=== PATIENT | female | born 1950 | race Caucasian/White ===

== ENCOUNTER 2021-10-29 20:28 | Emergency (ER) | payer MEDICARE, OTHER, SELFPAY ==
[2021-10-29] VITALS (8 sets, daily range): BP systolic 155–208; BP diastolic 75–101; PULSE 54–64; RESP 18–38; TEMP 37.2; O2SAT 95–99; BMI 23.3
--- NOTE | 2021-10-29 20:40 | DI.RAD.S_ITS ---
PROCEDURE: XR CHEST 1V INDICATIONS: chest pain TECHNIQUE: One view of the chest was acquired. COMPARISON: , , CHEST 2 VIEW, 05/20/2007, 13:53. FINDINGS: Surgical changes and devices: None. Lungs and pleura: Lungs are clear. No pleural effusions or pneumothorax. Mediastinum: Mediastinal contours appear normal. Heart size is normal. Bones and chest wall: No suspicious bony lesions. Overlying soft tissues appear unremarkable. IMPRESSION: 1. No acute cardiopulmonary disease. Dictated by: Phoenix Patel M.D. on 10/29/2021 at 21:49 Approved by: Phoenix Patel M.D. on 10/29/2021 at 21:49
[2021-10-29 21:04] LABS: Alanine Aminotransferase 22 IU/L (<35); Albumin 4.6 g/dL (3.5-5.0); Albumin Globulin Ratio 1.6 (1.0-2.8); Alkaline Phosphatase 88 U/L (38-126); Aspartate Aminotransferase 24 IU/L (14-36); BUN Creatinine Ratio 33.8 (6-22); Bilirubin Total 0.6 mg/dL (0.2-1.3); Blood Urea Nitrogen 22 mg/dL (7-17); Calcium 9.7 mg/dL (8.4-10.2); Carbon Dioxide 28 mmol/L (22-32); Chloride 105 mmol/L (98-107); Creatine Kinase 113 U/L (30-135); Estimated Glomerular Filt Rate > 60 mL/min (>60); Globulin 2.8 g/dL (1.7-4.1); Glucose 116 mg/dL (80-110); Lipase 170 U/L (23-300); Magnesium 2.1 mg/dL (1.6-2.3); Potassium 3.4 mmol/L (3.4-5.1); Sodium 141 mmol/L (137-145); Total Protein 7.4 g/dL (6.3-8.2)
--- NOTE | 2021-10-29 21:07 | ED_ITS ---
HPI - Chest Pain General Chief Complaint: Chest Pain Stated Complaint: Nausea chest pain Time Seen by Provider: 10/29/21 20:53 Source: patient Mode of arrival: Ambulatory Limitations: no limitations Limitations: no limitations History of Present Illness HPI narrative: The patient presents with epigastric pain and chest pain. Symptoms started about 1 hour prior to arrival. She has just been 5 days as [facility] in [place] with her elderly mother. She is on a statin, Celebrex, and Prozac. She left those medications at home. after leaving the hospital she had a sandwich. When physicians sounds she developed epigastric pain. Pain increased in strength while driving here. She had no nausea vomiting. She did develop central sternal chest pain, the pain did not radiate. She has no palpitations, no diaphoresis. She has no chronic health issues. She has no diabetes or hypertension. She is nonsmoker. She has no history of PUD, or GERD. Related Data Home Medications Medication Instructions Recorded Confirmed CHOLECALCIFEROL (VITAMIN D3) 0 PO * DOSE/FREQUENCY ##0 01/10/08 (Vitamin D3) Cyanocobalamin (Vitamin B-12) 100 mcg PO ##0 01/10/08 [FISH OIL] ##0 01/10/08 [TYLENOL ARTHRITIS] ##0 01/10/08 atorvastatin 10 mg tablet 10 mg PO DAILY 09/19/21 09/19/21 celecoxib 100 mg capsule (Celebrex) 200 mg PO DAILY 09/19/21 09/19/21 fluoxetine 10 mg capsule (Prozac) 10 mg PO DAILY 09/19/21 09/19/21 fluticasone furoate 100 1 inh inhalation DAILY 09/19/21 09/19/21 mcg-vilanterol 25 mcg/dose inhalation powder (Breo Ellipta) Allergies Allergy/AdvReac Type Severity Reaction Status Date / Time penicillin G [PENICILLIN G] Allergy Unknown Unverified 05/21/17 11:46 Review of Systems Review of Systems ROS Unobtainable: All systems reviewed & are unremarkable except as noted in HPI and below Constitutional Constitutional: Denies chills, Denies fatigue, Denies fever(s) and Denies headache(s) ENT Ears, Nose, Mouth, and Throat: Denies vertigo, Denies dizziness, Denies headache(s), Denies sinus pain, Denies sinus pressure and Denies sore throat Cardiovascular Cardiovascular: Reports chest pain, Denies pedal edema, Denies palpitations, Denies dyspnea and Denies paroxysmal nocturnal dyspnea Respiratory Respiratory: Denies chest congestion, Denies cough and Denies dyspnea Gastrointestinal Gastrointestinal: Reports abdominal pain and Denies change in stool character Genitourinary Genitourinary: Denies dysuria Musculoskeletal Musculoskeletal: Denies back pain Integumentary/Breasts Skin/Breast: Denies rash Neurologic Neurologic: Denies vertigo, Denies dizziness and Denies headache(s) Psychiatric Psychiatric: Reports anxiety Endocrine Endocrine: Denies fatigue and Denies palpitations Patient History Medical History (Updated 10/30/21 @ 05:14 by Gregory Shaw MD) Anxiety Arthritis GERD (gastroesophageal reflux disease) Social History Smoking Status: Never smoker Smoking Status: Never smoker alcohol intake frequency: 0-2 drinks per day Substance Use Type: does not use Exam Initial Vital Signs Initial Vital Signs: Vital Signs Pulse Rate 60 10/29/21 20:32 Respiratory Rate 38 H 10/29/21 20:32 Const General: cooperative, healthy appearing, comfortable and anxious Nutritional Appearance: average body habitus HENMT Head: normocephalic and atraumatic Face and sinus: normal facial exam Throat: posterior oropharynx normal Eyes General: Yes appearance normal, both eyes and all related structures Neck Neck: normal visual inspection Chest Chest: normal inspection of the chest Resp Auscultation: clear to auscultation bilaterally Cardio Rate: regular rate Rhythm: regular rhythm Heart Sounds: S1 normal, S2 normal and no murmurs GI Palpation: No guarding, No hepatomegaly and tender (Epigastric) Auscultation: normal bowel sounds General: No CVA tenderness Back/Spine/Pelvis Back: No back tenderness Skin General: no rashes or lesions noted Neuro General: patient alert, patient awake, patient oriented x3 and no focal motor deficits Extrem General: normal to inspection, no pedal edema and no calf tenderness Course Course Course Narrative: Symptoms resolved with Protonix and GI cocktail. There is no evidence of cardiopulmonary disease. Orders Ordered: ED Orders 10/29/21 20:40 XR chest 1V Stat Complete Blood Count AUTO DIFF Stat Comprehensive Metabolic Panel Stat Lipase Stat Magnesium Stat Troponin & CK Cardiac Panel Stat 10/29/21 20:43 EKG-12 Lead Stat Discontinued Medications Al Hydrox/Mg Hydrox/Simethicone 20 ml/ Lidocaine HCl 15 ml 0 ml PO NOW ONE Stop: 10/29/21 21:10 Last Admin: 10/29/21 21:19 Dose: 35 ml Documented By: RL Pantoprazole Sodium (Pantoprazole 40 Mg Vial) 40 mg IV NOW ONE Stop: 10/29/21 21:10 Last Admin: 10/29/21 21:19 Dose: 40 mg Documented By: RL Vital Signs Vital signs: Vital Signs - 8 hr 10/29/21 21:30 10/29/21 22:00 10/29/21 22:35 Pulse Rate 60 64 Respiratory Rate 18 30 H Blood Pressure 155/75 H Pulse Oximetry 96 95 Oxygen Delivery Method Room Air MDM - Chest Pain Lab Data Result diagrams: 10/29/21 20:40 10/29/21 20:40 Labs: Lab Results 10/29/21 10/29/21 Range/Units 20:40 20:40 WBC 5.6 (4.5-11.0) X10^3/uL RBC 4.36 (4.0-5.2) X10^6/uL Hgb 13.9 (12.0-16.0) g/dL Hct 40.2 (36-46) % MCV 92.1 (80-100) fL MCH 32.0 (26-34) PG MCHC 34.7 (30-36) % RDW 14.1 (11.6-14.8) % Plt Count 269 (150-400) X10^3/uL Neut % (Auto) 55.2 (50-75) % Lymph % (Auto) 33.8 (25-40) % Lincoln % (Auto) 8.6 (3-14) % Eos % (Auto) 1.4 L (2-4) % Baso % (Auto) 1.0 (0-2) % Neut # (Auto) 3100 (5389-5093) /uL Lymph # (Auto) 1900 (0756-0113) /uL Lincoln # (Auto) 500 (0-900) /uL Eos # (Auto) 100 (0-450) /uL Baso # (Auto) 100 (0-100) /uL Sodium 141 (137-145) mmol/L Potassium 3.4 (3.4-5.1) mmol/L Chloride 105 (98-107) mmol/L Carbon Dioxide 28 (22-32) mmol/L BUN 22 H (7-17) mg/dL Creatinine 0.65 (0.52-1.04) mg/dL Estimated GFR > 60 (>60) mL/min BUN/Creatinine Ratio 33.8 H (6-22) Glucose 116 H (80-110) mg/dL Calcium 9.7 (8.4-10.2) mg/dL Magnesium 2.1 (1.6-2.3) mg/dL Total Bilirubin 0.6 (0.2-1.3) mg/dL AST 24 (14-36) IU/L ALT 22 (<35) IU/L Alkaline Phosphatase 88 (38-126) U/L Total Creatine Kinase 113 (30-135) U/L CK-MB (CK-2) 3.32 H (<2.37) ng/mL CK-MB (CK-2) Rel Index 2.9 (1.5-5.0) % Troponin I < 0.012 (0.01-0.034) ng/mL Total Protein 7.4 (6.3-8.2) g/dL Albumin 4.6 (3.5-5.0) g/dL Globulin 2.8 (1.7-4.1) g/dL Albumin/Globulin Ratio 1.6 (1.0-2.8) Lipase 170 (23-300) U/L Imaging Data Chest x-ray: Radiologist's Impression: no acute cardiopulmonary disease. ECG Data Attestation: I personally reviewed and interpreted this ECG as follows: ( Normal sinus rhythm rate 66 beats per minute. Normal intervals. No ectopy. No acute ST T wave changes.) Discharge Plan Departure Patient Disposition: Home Clinical Impression: Abdominal pain, acute, epigastric Instructions: DI for Abdominal Pain-Adult Activity Restrictions/Additional Instructions: your pain is likely from the stomach. Your heart and lungs are functioning normally. The discomfort was somehow related to that last meal had. I would recommend a bland, low-fat diet until your Symptoms have resolved. If you have ongoing symptoms, omeprazole is available [id number]. Take 20 mg daily. Plan follow-up with your doctor. Return here as necessary. Prescriptions: No Action CHOLECALCIFEROL (VITAMIN D3) (Vitamin D3) 0 PO * DOSE/FREQUENCY Qty: 0 [FISH OIL] Qty: 0 Cyanocobalamin (Vitamin B-12) 100 mcg PO Qty: 0 [TYLENOL ARTHRITIS] Qty: 0 celecoxib [Celebrex] 100 mg capsule 200 mg PO DAILY fluoxetine [Prozac] 10 mg capsule 10 mg PO DAILY fluticasone furoate-vilanterol [Breo Ellipta] 100-25 mcg/dose blister with device 1 inh inhalation DAILY atorvastatin 10 mg tablet 10 mg PO DAILY Referrals: Beba Melendez PA-C [Primary Care Provider] - Visit Report Forms: Patient Portal/API
[2021-10-29 21:11] LABS: Add Manual Diff / Slide Review NO; Basophils Absolute Auto 100 /uL (0-100); Eosinophils Absolute Auto 100 /uL (0-450); Eosinophils Percent Auto 1.4 % (2-4); Hematocrit 40.2 % (36-46); Hemoglobin 13.9 g/dL (12.0-16.0); Lymphocytes Absolute Auto 1900 /uL (1100-4500); Lymphocytes Percent Auto 33.8 % (25-40); Mean Corpuscular HGB Conc 34.7 % (30-36); Mean Corpuscular Volume 92.1 fL (80-100); Monocytes Absolute Auto 500 /uL (0-900); Monocytes Percent Auto 8.6 % (3-14); Neutrophils Absolute Auto 3100 /uL (1500-7000); Neutrophils Percent Auto 55.2 % (50-75); Platelet Count 269 X10^3/uL (150-400); Red Blood Cell Count 4.36 X10^6/uL (4.0-5.2); Red Cell Distribution Width 14.1 % (11.6-14.8); White Blood Cell Count 5.6 X10^3/uL (4.5-11.0)
[2021-10-29 21:15] LABS: Troponin I < 0.012 ng/mL (0.01-0.034)
[2021-10-29 21:18] LABS: CKMB % Relative Index 2.9 % (1.5-5.0); Creatine Kinase MB 3.32 ng/mL (<2.37); HEMOLYSIS 39 (0-50)
[2021-10-29] MEDS: PANTOPRAZOLE 40 MG VIAL IV (21:19)
[2021-10-29] MEDS: MAG HYDROX/ALUMINUM/SIMETH SUS 20 ML, LIDOCAINE VISCOUS 2% 15 ML PO (21:19)
== END 2021-10-29 22:40 | disposition home or self-care (01) ==
PROVIDERS: Emergency Provider Emergency Medicine; PCP Physician Assistant Medical; Referring Provider Specialist
DX: R10.13 Epigastric pain (principal); R07.9 Chest pain, unspecified
CPT/HCPCS: 36415; 71045; 80053; 82550; 82553; 83690; 83735; 84484; 85025; 93005; 93010; 96374; 99284; C9113

== ENCOUNTER → 2022-01-08 14:42 | Outpatient (CLI) | payer MEDICARE, SELFPAY ==
[2022-01-08 19:27] LABS: Add Manual Diff / Slide Review NO; Basophils Absolute Auto 0 /uL (0-100); Eosinophils Absolute Auto 100 /uL (0-450); Eosinophils Percent Auto 1.9 % (2-4); Hematocrit 38.1 % (36-46); Lymphocytes Absolute Auto 1300 /uL (1100-4500); Lymphocytes Percent Auto 27.4 % (25-40); Mean Corpuscular Hemoglobin 31.5 PG (26-34); Mean Corpuscular Volume 92.5 fL (80-100); Monocytes Absolute Auto 500 /uL (0-900); Monocytes Percent Auto 9.8 % (3-14); Neutrophils Absolute Auto 2800 /uL (1500-7000); Neutrophils Percent Auto 59.9 % (50-75); Platelet Count 285 X10^3/uL (150-400); Red Blood Cell Count 4.12 X10^6/uL (4.0-5.2); Red Cell Distribution Width 14.2 % (11.6-14.8); White Blood Cell Count 4.7 X10^3/uL (4.5-11.0)
[2022-01-08 19:44] LABS: Alanine Aminotransferase 23 IU/L (<35); Albumin 4.2 g/dL (3.5-5.0); Albumin Globulin Ratio 1.6 (1.0-2.8); Alkaline Phosphatase 122 U/L (38-126); Aspartate Aminotransferase 24 IU/L (14-36); Bilirubin Total 0.5 mg/dL (0.2-1.3); Blood Urea Nitrogen 15 mg/dL (7-17); C-Reactive Protein Quant 1.1 mg/dL (<1.0); Calcium 9.4 mg/dL (8.4-10.2); Carbon Dioxide 31 mmol/L (22-32); Chloride 101 mmol/L (98-107); Estimated Glomerular Filt Rate > 60 mL/min (>60); Globulin 2.6 g/dL (1.7-4.1); Glucose 87 mg/dL (80-110); HEMOLYSIS < 15 (0-50); Potassium 4.2 mmol/L (3.4-5.1); Sodium 140 mmol/L (137-145); Total Protein 6.8 g/dL (6.3-8.2)
[2022-01-08 20:38] LABS: Erythrocyte Sedimentation Rate 16 MM/HR (0-20)
== END ==
PROVIDERS: PCP Physician Assistant Medical; Visit Provider Internal Medicine Rheumatology
DX: M47.819 Spondylosis without myelopathy or radiculopathy, site unspecified (principal); Z79.899 Other long term (current) drug therapy
CPT/HCPCS: 80053; 84550; 85025; 85651; 86140

== ENCOUNTER → 2022-11-26 14:15 | Outpatient (CLI) | payer MEDICARE, OTHER, SELFPAY ==
[2022-11-26 19:04] LABS: Add Manual Diff / Slide Review NO; Basophils Absolute Auto 0 /uL (0-100); Basophils Percent Auto 0.8 % (0-2); Eosinophils Absolute Auto 100 /uL (0-450); Eosinophils Percent Auto 2.9 % (2-4); Hematocrit 35.7 % (36-46); Hemoglobin 12.1 g/dL (12.0-16.0); Lymphocytes Absolute Auto 1200 /uL (1100-4500); Lymphocytes Percent Auto 25.5 % (25-40); Mean Corpuscular Hemoglobin 32.9 PG (26-34); Mean Corpuscular Volume 96.8 fL (80-100); Monocytes Absolute Auto 300 /uL (0-900); Monocytes Percent Auto 6.1 % (3-14); Neutrophils Absolute Auto 3000 /uL (1500-7000); Neutrophils Percent Auto 64.7 % (50-75); Platelet Count 279 X10^3/uL (150-400); Red Blood Cell Count 3.69 X10^6/uL (4.0-5.2); Red Cell Distribution Width 13.8 % (11.6-14.8); White Blood Cell Count 4.6 X10^3/uL (4.5-11.0)
[2022-11-26 19:05] LABS: Alanine Aminotransferase 46 IU/L (<35); Albumin Globulin Ratio 1.8 (1.0-2.8); Alkaline Phosphatase 74 U/L (38-126); Aspartate Aminotransferase 38 IU/L (14-36); BUN Creatinine Ratio 26.2 (6-22); Blood Urea Nitrogen 16 mg/dL (7-17); Calcium 9.6 mg/dL (8.4-10.2); Carbon Dioxide 31 mmol/L (22-32); Chloride 102 mmol/L (98-107); Estimated Glomerular Filt Rate > 60 mL/min (>60); Globulin 2.2 g/dL (1.7-4.1); Glucose 93 mg/dL (80-110); HEMOLYSIS < 15 (0-50); Potassium 4.1 mmol/L (3.4-5.1); Sodium 138 mmol/L (137-145); Total Protein 6.2 g/dL (6.3-8.2)
[2022-11-26 19:09] LABS: High Sensitivity CRP - Cardiac 1.2 mg/L (1.0-3.0)
[2022-11-26 19:21] LABS: Bilirubin Total 0.3 mg/dL (0.2-1.3)
[2022-11-26 20:50] LABS: Erythrocyte Sedimentation Rate 3 MM/HR (0-20)
== END ==
PROVIDERS: PCP Physician Assistant Medical; Visit Provider Internal Medicine Rheumatology
DX: Z79.899 Other long term (current) drug therapy (principal); M47.819 Spondylosis without myelopathy or radiculopathy, site unspecified
CPT/HCPCS: 80053; 85025; 85651; 86140

== ENCOUNTER → 2023-01-30 10:42 | Outpatient (CLI) | payer MEDICARE, OTHER, SELFPAY ==
--- NOTE | 2023-01-30 10:30 | DI.MRI.S_ITS ---
PROCEDURE: MR LUMBAR SPINE WO CON INDICATIONS: Lumbar radiculopathy TECHNIQUE: Noncontrast sagittal T1 spin echo and T2 fast echo, sagittal STIR, and T2 fast spin echo through the lumbar spine. In cases with scoliosis, additional coronal T2 fast spin echo may be performed. COMPARISON: None. FINDINGS: Image quality: Excellent. Alignment and Curvature: There is normal bony alignment. Bone Marrow: Marrow is of normal overall signal. No acute vertebral body compression fractures. Remote compression fracture of L1 with 20 percent anterior height loss. Spinal Cord: Conus medullaris terminates at the L1 level. Visualized cord demonstrates normal signal and size. Paraspinous Soft Tissues: No paravertebral masses. T12-L1: There is bony fusion of the T12 and L1 vertebral bodies posteriorly will which bulges posteriorly at the disc level. The foramina and central canal are patent. L1-L2: Diffuse disc bulge with no significant foraminal or central canal stenosis. L2-L3: Right paracentral disc protrusion and right facet arthropathy causes severe right foraminal stenosis. The left foramen has mild stenosis. The central canal has severe stenosis. There is ligamentum flavum hypertrophy. L3-L4: Disc space narrowing. Diffuse disc bulge with disc osteophytes. Moderate bilateral foraminal stenosis. No facet hypertrophy. Mild to moderate central canal stenosis. L4-L5: Disc space narrowing. Diffuse disc bulge with disc osteophytes. Facet hypertrophy on the left causes severe left foraminal stenosis and moderate right foraminal stenosis. The central canal is patent. L5-S1: Diffuse disc bulge causes mild bilateral foraminal stenosis. No central canal stenosis. Facet hypertrophy and ligamentum flavum hypertrophy at this level cause moderate central canal stenosis. IMPRESSION: 1. Multilevel degenerative disc disease causing foraminal and central canal stenosis as detailed above. 2. L2-3 has a large right paracentral disc protrusion with severe right foraminal stenosis and severe central canal stenosis at this level. 3. Facet hypertrophy and ligamentum flavum hypertrophy at L5-S1 cause moderate central canal stenosis. 4. Mild to moderate central canal stenosis at L3-4. Dictated by: Jose J Chen M.D. on 01/30/2023 at 15:20 Approved by: Jose J Chen M.D. on 01/30/2023 at 15:32
== END ==
PROVIDERS: PCP Physician Assistant Medical; Referring Provider Anesthesiology; Visit Provider Anesthesiology
DX: M51.16 Intervertebral disc disorders with radiculopathy, lumbar region (principal); M48.061 Spinal stenosis, lumbar region without neurogenic claudication; M48.07 Spinal stenosis, lumbosacral region; M47.26 Other spondylosis with radiculopathy, lumbar region; M47.27 Other spondylosis with radiculopathy, lumbosacral region
CPT/HCPCS: 72148

== ENCOUNTER → 2023-03-24 14:04 | Outpatient (CLI) | payer MEDICARE, OTHER, SELFPAY ==
[2023-03-24 18:49] LABS: Alanine Aminotransferase 26 IU/L (<35); Albumin 4.6 g/dL (3.5-5.0); Albumin Globulin Ratio 1.7 (1.0-2.8); Alkaline Phosphatase 132 U/L (38-126); Aspartate Aminotransferase 30 IU/L (14-36); BUN Creatinine Ratio 23.6 (6-22); Bilirubin Total 0.9 mg/dL (0.2-1.3); Blood Urea Nitrogen 13 mg/dL (7-17); Calcium 9.7 mg/dL (8.4-10.2); Carbon Dioxide 28 mmol/L (22-32); Chloride 99 mmol/L (98-107); Cholesterol 232 mg/dL (140-199); Estimated Glomerular Filt Rate > 60 mL/min (>60); Globulin 2.7 g/dL (1.7-4.1); Glucose 97 mg/dL (80-110); HDL Cholesterol 72 mg/dL (40-60); HEMOLYSIS < 15 (0-50); LDL Cholesterol Calculated 141 mg/dL (<100); Potassium 3.9 mmol/L (3.4-5.1); Sodium 138 mmol/L (137-145); Total Protein 7.3 g/dL (6.3-8.2); Triglycerides 95 mg/dL (35-150)
== END ==
PROVIDERS: PCP Physician Assistant Medical; Visit Provider Specialist
DX: E78.2 Mixed hyperlipidemia (principal); Z51.81 Encounter for therapeutic drug level monitoring
CPT/HCPCS: 80053; 80061

== ENCOUNTER → 2023-06-13 11:09 | Outpatient (CLI) | payer MEDICARE, OTHER, SELFPAY ==
[2023-06-13 19:44] LABS: Cholesterol 172 mg/dL (140-199); HDL Cholesterol 57 mg/dL (40-60); LDL Cholesterol Calculated 100 mg/dL (<100); Triglycerides 76 mg/dL (35-150)
[2023-06-13 19:44] LABS: Add Manual Diff / Slide Review NO; Basophils Absolute Auto 0 /uL (0-100); Basophils Percent Auto 0.9 % (0-2); Eosinophils Absolute Auto 100 /uL (0-450); Eosinophils Percent Auto 3.1 % (2-4); Hematocrit 29.3 % (36-46); Hemoglobin 9.9 g/dL (12.0-16.0); Lymphocytes Absolute Auto 1000 /uL (1100-4500); Lymphocytes Percent Auto 27.1 % (25-40); Mean Corpuscular HGB Conc 33.7 % (30-36); Mean Corpuscular Volume 98.2 fL (80-100); Monocytes Absolute Auto 300 /uL (0-900); Monocytes Percent Auto 7.6 % (3-14); Neutrophils Absolute Auto 2200 /uL (1500-7000); Neutrophils Percent Auto 61.3 % (50-75); Platelet Count 312 X10^3/uL (150-400); Red Blood Cell Count 2.99 X10^6/uL (4.0-5.2); Red Cell Distribution Width 14.1 % (11.6-14.8); White Blood Cell Count 3.6 X10^3/uL (4.5-11.0)
[2023-06-13 20:22] LABS: Erythrocyte Sedimentation Rate 17 MM/HR (0-20)
[2023-06-13 21:19] LABS: Alanine Aminotransferase 25 IU/L (<35); Albumin 3.9 g/dL (3.5-5.0); Albumin Globulin Ratio 1.9 (1.0-2.8); Alkaline Phosphatase 96 U/L (38-126); Aspartate Aminotransferase 33 IU/L (14-36); BUN Creatinine Ratio 27.7 (6-22); Bilirubin Total 0.9 mg/dL (0.2-1.3); Blood Urea Nitrogen 13 mg/dL (7-17); C-Reactive Protein Quant 1.1 mg/dL (<1.0); Calcium 9.2 mg/dL (8.4-10.2); Carbon Dioxide 29 mmol/L (22-32); Chloride 107 mmol/L (98-107); Estimated Glomerular Filt Rate > 60 mL/min (>60); Globulin 2.1 g/dL (1.7-4.1); Glucose 95 mg/dL (80-110); HEMOLYSIS < 15 (0-50); Potassium 4.5 mmol/L (3.4-5.1); Sodium 139 mmol/L (137-145)
== END ==
PROVIDERS: PCP Physician Assistant Medical
DX: L40.59 Other psoriatic arthropathy (principal); E78.2 Mixed hyperlipidemia; Z79.899 Other long term (current) drug therapy
CPT/HCPCS: 80053; 80061; 85025; 85651; 86140

== ENCOUNTER → 2024-04-26 16:50 | Outpatient (CLI) | payer MEDICARE, OTHER, SELFPAY ==
[2024-04-27 19:39] LABS: Bilirubin Urine UA NEGATIVE (NEGATIVE); Color Urine UA YELLOW; Glucose Urine UA NEGATIVE (Negative); Ketones Urine UA TRACE (NEGATIVE); Leukocyte Esterase Urine UA NEGATIVE (NEGATIVE); Nitrite Urine UA NEGATIVE (Negative); Occult Blood Urine UA NEGATIVE (Negative); Protein Urine UA NEGATIVE (Negative); Specific Gravity Urine UA 1.025 (1.000-1.035); Urobilinogen Urine UA 0.2 E.U./dL (0.2)
[2024-04-27 19:41] LABS: Appearance Urine UA Turbid
[2024-04-27 19:47] LABS: RBC Urine None Seen (0-5/HPF); Squamous Epithelial Cell Urine 0-1 /HPF (0-5/HPF); Urine Volume 6; WBC Urine 0-1/HPF (0-5/HPF)
[2024-04-27 19:56] LABS: Bacteria Urine None Seen; Culture Indicated Urine Cult Not Indicated
[2024-04-27 19:57] LABS: Amorphous Sediment Urine 1+; Calcium Oxalate Crystals Urine Few
== END ==
PROVIDERS: PCP Family Medicine; Visit Provider Specialist
DX: R32 Unspecified urinary incontinence (principal); R35.0 Frequency of micturition; R35.1 Nocturia; N89.8 Other specified noninflammatory disorders of vagina
CPT/HCPCS: 81001

== ENCOUNTER → 2024-06-24 13:13 | Outpatient (CLI) | payer MEDICARE, OTHER, SELFPAY ==
--- NOTE | 2024-06-24 13:15 | DI.RAD.S_ITS ---
PROCEDURE: XR DEXA AXIAL SKELETON INDICATIONS: SCREENING FOR OSTEOPOROSIS COMPARISON: None. FINDINGS: Lumbar Spine: Bone mineral density 0.993 g/cm2, T score -0.8. Left Femoral Neck: Bone mineral density 0.618 g/cm2, T score -2.1. Left Hip: Bone mineral density 0.731 g/cm2, T score -1.7. Fracture Risk Calculation (when applicable): 10-year fracture risk of a major osteoporotic fracture 30 percent and of a hip fracture 19 percent. (T score greater or equal to -1.0 to: NORMAL) (T score from -1.1 to -2.4: OSTEOPENIA) (T score less than or equal to -2.5: OSTEOPOROSIS) IMPRESSION: Osteopenia--- recommend repeat DEXA in 2-3 years for reassessment. Follow-up guidelines as follows: Osteoporosis: Consider a repeat DEXA and Vertebral Fracture Assessment (VFA) exam in 2 years or sooner if medically necessary, to reassess this patient's status. Osteopenia: Consider a repeat DEXA in 2-3 years to reassess this patient's status, or if there is a new clinical indication. Normal: Consider a repeat DEXA in 5 years or sooner, or if there is a new clinical indication. All treatment decisions require clinical judgment and consideration of individual patient factors, including patient preferences, comorbidities, previous drug use, risk factors not captured in the FRAX model (e.g., frailty, falls, vitamin D deficiency, increased bone turnover, interval significant decline in bone density ) and possible under- or over-estimation of fracture risk by FRAX. In addition, the NOF Guide recommends that FDA-approved medical therapies be considered in postmenopausal women and men age >= 50 years with a: * Hip or vertebral (clinical or morphometric) fracture * T-score of <=-2.5 at the spine or hip * Ten-year fracture probability by FRAX of >= 3% for hip fracture or >=20% for major osteoporotic fracture. Dictated by: Damien Denson M.D. on 06/24/2024 at 18:46 Approved by: Damien Denson M.D. on 06/24/2024 at 18:48
--- NOTE | 2024-06-24 13:16 | DI.MG.S_ITS ---
MM screening mammo BI: 06/24/2024. BI-RADS: 0 CLINICAL: 73-year old female for bilateral screening mammogram. Tyrer-Cuzick lifetime risk of 4.7%. No personal or first-degree family history of breast cancer. Current reported family history of breast cancer: maternal uncle's daughter. PRIOR EXAMS Outside priors dated 05/14/2023, 05/07/2022, and 07/18/2015. MAMMOGRAPHY TECHNIQUE: 2D and 3D (tomosynthesis) digital mammographic views obtained, with additional images as needed for full coverage. Current study was also evaluated with a Computer Aided Detection (CAD) system. DENSITY C. The breasts are heterogeneously dense, which may obscure small masses. MAMMOGRAPHY FINDINGS Right: No suspicious mass, asymmetry, microcalcification, or other abnormality seen. Left: Upper at 12:00, Middle depth: Focal asymmetry needing additional imaging evaluation. IMPRESSION: Right * No evidence of malignancy. Left (Asymmetry): Upper at 12:00, Middle depth * Incomplete - focal asymmetry needing additional imaging evaluation. RECOMMENDATIONS Left: Upper at 12:00, Middle depth * Further evaluation with diagnostic mammography and diagnostic ultrasound. Ultrasound to be performed only if needed. OVERALL ASSESSMENT CATEGORY BI-RADS-0: Incomplete - Need Additional Imaging Evaluation. ELECTRONICALLY SIGNED: Deisy Leon M.D. on 06/28/2024 at 01:21:13 AM PT Interpreting Station ID: [id number]
== END ==
LOC: MAMMO 13:14
PROVIDERS: PCP Family Medicine; Referring Provider Family Medicine; Visit Provider Family Medicine
DX: Z12.31 Encounter for screening mammogram for malignant neoplasm of breast (principal); R92.8 Other abnormal and inconclusive findings on diagnostic imaging of breast; R92.333 Mammographic heterogeneous density, bilateral breasts; M85.89 Other specified disorders of bone density and structure, multiple sites; Z78.0 Asymptomatic menopausal state; Z80.3 Family history of malignant neoplasm of breast
CPT/HCPCS: 77063; 77067; 77080

== ENCOUNTER 2024-07-14 10:44 | Day surgery (SDC) | payer MEDICARE, OTHER, SELFPAY ==
[2024-07-14 11:18] VITALS: BP 175/72; PULSE 66; RESP 16; TEMP 36.2; O2SAT 96
[2024-07-14] MEDS: LACTATED RINGERS 1,000 ML 84 ML IV (11:26)
--- NOTE | 2024-07-14 11:31 | PM.HP.IH.1 ---
History of Present Illness History of Present Illness Date Patient Seen: 07/14/24 Chief complaint: Colonoscopy Narrative: Screening colonoscopy [facility] Medical History (Updated 05/15/24 @ 19:29 by Nan Jacob) Hearing decreased Eczema (~1969) Psoriatic arthritis Osteoarthritis (~1989) Asthma (~1979) Cataracts, bilateral (~2021) Hyperlipidemia (~2022) Aortic stenosis (~2022) Skin cancer (~2019) Lumbar spinal stenosis Lumbar foraminal stenosis Low back pain Lumbar spondylosis Lumbar radiculopathy Lower extremity surgery planned GERD (gastroesophageal reflux disease) Anxiety Arthritis Surgical History (Updated 05/15/24 @ 19:29 by Nan Jacob) Anesthesia History of surgery on lower extremity History of lumbar surgery Family History (Updated 05/15/24 @ 19:31 by Nan Jacob) Mother Scoliosis Pneumonia Father Stroke Brother History of heart disease Social History Smoking Status: Former smoker alcohol intake: never Meds Home Medications and Allergies Home Medications ?Medication ?Instructions ?Recorded ?Confirmed ?Type CHOLECALCIFEROL (VITAMIN D3) 0 PO * DOSE/FREQUENCY ##0 01/10/08 01/09/23 History (Vitamin D3) Cyanocobalamin (Vitamin B-12) 100 mcg PO ##0 01/10/08 01/09/23 History [TYLENOL ARTHRITIS] ##0 01/10/08 01/09/23 History fluticasone furoate 100 1 inh inhalation DAILY 09/19/21 05/06/24 History mcg-vilanterol 25 mcg/dose inhalation powder (Breo Ellipta) cetirizine 10 mg capsule (Zyrtec) 10 mg PO DAILY PRN 01/09/23 05/06/24 History meloxicam 15 mg tablet 15 mg PO DAILY 01/09/23 05/06/24 History rosuvastatin 5 mg tablet 5 mg PO DAILY 01/09/23 05/06/24 History sulfasalazine 500 mg tablet 1,000 mg PO BID 01/09/23 05/06/24 History tizanidine 2 mg tablet 2 mg PO BEDTIME 01/09/23 05/06/24 History sodium,potassium,mag sulfates 17.5 See Rx Instructions PO .COMPLEX 05/03/24 05/06/24 Rx gram-3.13 gram-1.6 gram oral soln #354 mL (Suprep Bowel Prep Kit) sertraline 25 mg tablet (Zoloft) 25 mg PO DAILY 05/06/24 05/06/24 History amlodipine 2.5 mg tablet 2.5 mg PO DAILY 07/14/24 07/14/24 History metoprolol succinate 25 mg 25 mg PO DAILY 07/14/24 07/14/24 History tablet,extended release 24 hr Allergies Allergy/AdvReac Type Severity Reaction Status Date / Time azithromycin Allergy Intermediate Hives Verified 05/06/24 11:12 Sulfa (Sulfonamide Allergy Intermediate Hives Verified 05/06/24 11:12 Antibiotics) Exam Vital Signs (past 8 hours): - 07/14/24 11:18 Temperature 97.1 F L Pulse Rate 66 Respiratory Rate 16 Blood Pressure 175/72 H Pulse Oximetry 96 Oxygen Delivery Method Room Air Oxygen Delivery Method Room Air Narrative Exam Narrative: Oropharynx free of lesion Assessment & Plan Assessment & Plan narrative: Need for follow-up screening colonoscopy. Risks benefits and alternatives have been explained Time-Based Coding :: [TOTAL MINUTES] spent with patient and on the chart (including review of chart, obtaining history, exam, reviewing outside data, placing orders, documenting exam and treatment plan, and counseling patient) on [DATE]. [facility] Document charge(s): No
--- NOTE | 2024-07-14 11:32 | PM.OP.COLON ---
Operative Date/Time/Diagnoses Date of procedure: 07/14/24 Time of procedure: 11:48 Pre-op diagnosis: See indication and findings Post-op diagnosis: same Procedure & Clinicians Study performed: Colonoscopy Same procedure as scheduled: Yes Indications: Screening Surgeon: Capri Bautista Procedure Notes Procedure in detail: After informed consent was obtained the patient was placed in left lateral decubitus position. The video colonoscope was placed in the rectum slowly advanced cecum. Preparation not good with some solid stool present throughout. On slow withdrawal mucosa was carefully examined. The scope was removed. The patient tolerated procedure well. Complications none Sedation mac Findings 1. Colonoscopy aborted due to solid stool still present. Need to be rescheduled through our office for a time when she can take an extra dose or double dose preparation.
[2024-07-14 11:51] VITALS: BP 140/76; PULSE 64; RESP 16; TEMP 36.3; O2SAT 96
[2024-07-14 11:56] VITALS: BP 156/85; PULSE 61; RESP 17; O2SAT 94
[2024-07-14 12:01] VITALS: BP 149/75; PULSE 57; RESP 12; O2SAT 96
[2024-07-14 12:18] VITALS: BP 151/89; PULSE 58; RESP 17; O2SAT 96
== END 2024-07-14 12:30 | disposition home or self-care (01) ==
PROVIDERS: PCP Family Medicine; Referring Provider Internal Medicine Gastroenterology; Visit Provider Internal Medicine Gastroenterology
PROC: 0DJD8ZZ Inspection of Lower Intestinal Tract, Via Natural or Artificial Opening Endoscopic (ICD-10-PCS; CPT 45378; principal; 2024-07-14 11:15)
DX: Z12.11 Encounter for screening for malignant neoplasm of colon (principal); Z53.09 Procedure and treatment not carried out because of other contraindication
CPT/HCPCS: G0121; J2704

== ENCOUNTER → 2024-08-09 10:57 | Outpatient (CLI) | payer MEDICARE, OTHER, SELFPAY ==
--- NOTE | 2024-08-09 11:16 | DI.MG.S_ITS ---
MM diagnostic mammo unilat LT, US breast LT limited: 08/09/2024 BI-RADS: 4 CLINICAL: 74-year old female for left diagnostic mammogram and left diagnostic breast ultrasound that is a recall from screening on 06/24/2024. Tyrer-Cuzick lifetime risk of 4.4%. No personal or first-degree family history of breast cancer. Current reported family history of breast cancer: maternal uncle's daughter. PRIOR EXAMS Mammogram(s): 06/24/2024. MAMMOGRAPHY TECHNIQUE: 2D and 3D (tomosynthesis) digital mammographic views obtained, with additional images as needed for full coverage. Current study was also evaluated with a Computer Aided Detection (CAD) system. ULTRASOUND TECHNIQUE TARGETED Left Breast Ultrasound: Real-time ultrasound exam was performed focused to area of clinical and/or imaging concern. Left targeted breast ultrasound of the area of clinical interest and the axilla was performed with image documentation. Real-time vyas scale and color doppler imaging of the area of clinical interest was performed with image documentation. DENSITY Left: C. The breasts are heterogeneously dense, which may obscure small masses. MAMMOGRAPHY FINDINGS Left: Upper Inner at 11:00, 6 cm from nipple, Middle depth. Previous report: Upper at 12:00: Correlating with findings on screening mammogram, there is an asymmetry present. ULTRASOUND FINDINGS Left: Upper Inner at 11:00, 6 cm from nipple, measuring 1 x 0.5 x 0.9 cm. Previous report: Upper at 12:00: There is an oval, indistinct, hypoechoic mass that is parallel. Doppler shows no vascularity. Left: Axilla: No abnormal lymph nodes are seen in the axilla. IMPRESSION: Left (Mass): Upper Inner at 11:00, 6 cm from nipple, measuring 1 x 0.5 x 0.9 cm. Previous report: Upper at 12:00 * Suspicious findings with likelihood of malignancy. RECOMMENDATIONS Left: Upper Inner at 11:00, 6 cm from nipple * Ultrasound-guided vacuum-assisted biopsy for further evaluation. COMMENTS: No axillary adenopathy visualized. The above findings and recommendations were discussed with the patient by the on-site radiologist at the time of the exam. OVERALL ASSESSMENT CATEGORY BI-RADS-4: Suspicious. ELECTRONICALLY SIGNED: Audie Acevedo M.D. on 08/09/2024 at 01:29:26 PM PT Interpreting Station ID: [id number]
== END ==
LOC: MAMMO 10:59
PROVIDERS: PCP Family Medicine; Referring Provider Family Medicine; Visit Provider Family Medicine
DX: R92.8 Other abnormal and inconclusive findings on diagnostic imaging of breast (principal); N63.22 Unspecified lump in the left breast, upper inner quadrant; R92.332 Mammographic heterogeneous density, left breast; Z80.3 Family history of malignant neoplasm of breast; Z87.898 Personal history of other specified conditions
CPT/HCPCS: 76642; 77065; G0279

== ENCOUNTER → 2024-09-13 13:01 | Outpatient (CLI) | payer MEDICARE, OTHER, SELFPAY ==
--- NOTE | 2024-09-13 | PATH_ITS ---
[facility] Accession Number: [id number] No. of containers..01 Tissue . 01 Material submitted: . breast - LEFT BREAST MASS 11:00 6CMFN . 01 Clinical history: . LEFT BREAST MASS 11:00 6CMFN . 01 Diagnosis: LEFT BREAST MASS, 11 O'CLOCK, 6 CM FN, IMAGE-GUIDED NEEDLE CORE BIOPSIES: Breast parenchyma with fibroadenomatoid changes and minute, patchy foci of atypical lobular hyperplasia/lobular carcinoma in situ (ALH/LCIS). Background ductal hyperplasia, usual-type, without atypia. Negative for atypical ductal hyperplasia, negative for ductal carcinoma in situ, and negative for invasive carcinoma. Please see microscopic description. MRV 09/16/2024 1602 Local . 01 Electronically signed: . Adelina Ledesma MD, Pathologist NPI- [id number] . 01 Gross description: . Received in formalin with two identifiers and left breast biopsy, is a 1.6 x 1.1 x 0.3 cm aggregate of yellow-meyer soft tissue fragments. Filtered and entirely submitted in cassette A1. . The fixation time is not provided and the cold ischemic time cannot be determined. Total formalin fixation time is approximately 35 hours. ([id number]) /GRAEME 09/14/20247 Local . 01 Microscopic: . To further support the morphologic impression of atypical lobular hyperplasia/lobular carcinoma in situ, immunostains are performed with the following results: . E-cadherin: Negative on the areas of interest (atypical lobular hyperplasia), positive on the areas of ductal hyperplasia usual-type. CK5/6: Decreased and diminished on the areas of interest. Estrogen Receptor: Overexpressed on the areas of interest. . These immunohistochemical results along with the morphology support the diagnosis. . As part of ongoing air quality specialist, this case is also reviewed by Dr. Jessa Finnegan, who agrees with the interpretation. . * This test was developed and the performance characteristics were validated by [facility]. It has not been cleared or approved by the U.S. Food and Drug Administration. . 01 Pathologist provided ICD-10: N63.20, R92.8 . 01 CPT . 854781, S85989, P53978 Specimen Comment: A courtesy copy of this report has been sent to [phone] Performed at: [address] [id number] MD Phoenix Ferguson MD Phone: [phone]
--- NOTE | 2024-09-13 13:06 | DI.US.S_ITS ---
US bx breast perc w vac device: 09/13/2024. Rad-Path Correlation: Pending CLINICAL: 74-year old female for left procedure that resulted from diagnostic mammogram on 08/09/2024. Tyrer-Cuzick lifetime risk of 5.7%. No personal or first-degree family history of breast cancer. Current reported family history of breast cancer: maternal uncle's daughter. The patient had a prior left breast biopsy. PRIOR EXAMS: Comparison is made with relevant prior imaging in PACS including the most recent: Mammogram(s): 08/09/2024, 06/24/2024. Breast Ultrasound(s): 08/09/2024. CONSENT Risks including but not limited to bleeding and infection, benefits and alternatives were discussed with the patient. The patient agreed to the procedure and signed informed consent. Time out procedure was used. ROUTINE Left: Patient positioned in the supine or supine-oblique position, prepped and draped in the usual manner using sterile technique. TECHNIQUE Left: Upper Inner at 11:00, 6 cm from nipple: Procedure: Ultrasound-guided vacuum-assisted biopsy of a focal asymmetry with Butterfly-shaped marker placement. Device: 13-gauge vacuum-assisted biopsy instrument. Bard(R) [place](TM). Approach: Lateral. Anesthesia: Local anesthesia obtained using 5 ml 1%-lidocaine buffered with sodium bicarbonate. Secondary local anesthesia obtained using 6 ml 1%-lidocaine with epinephrine. Skin Entry: Incision with #11 blade. Passes: 5. Targeting Confirmation: Real-time Observation and Additional Images. Rad/Path Correlation: Pending receipt of pathology report. Conclusion: Ultrasound-guided Vacuum-assisted biopsy, Left: Upper Inner at 11:00, 6 cm from nipple COMPLICATIONS: No complications were encountered while the patient was in our department. DISPOSITION The patient left our department in good condition with aftercare instructions and urged to contact us should any problem arise. SUMMARY Left: Upper Inner at 11:00, 6 cm from nipple: Ultrasound-guided vacuum- assisted biopsy of a focal asymmetry with Butterfly-shaped marker placement. PATHOLOGY Left: Upper Inner at 11:00, 6 cm from nipple: Radiologist-Pathologist Correlation: Pending receipt of pathology report. ELECTRONICALLY SIGNED: Killian Damico M.D. on 09/16/2024 at 12:38:30 PM PT Interpreting Station ID: [id number]
--- NOTE | 2024-09-13 13:06 | DI.MG.S_ITS ---
MM clip placement LT: 09/13/2024. BI-RADS: None CLINICAL: 74-year old female for left diagnostic mammogram that is a recall from screening on 06/24/2024. Tyrer-Cuzick lifetime risk of 5.7%. No personal or first-degree family history of breast cancer. Current reported family history of breast cancer: maternal uncle's daughter. The patient had a prior left breast biopsy. PRIOR EXAMS: Comparison is made with relevant prior imaging in PACS including the most recent: Mammogram(s): 08/09/2024, 06/24/2024. Breast Ultrasound(s): 08/09/2024. MAMMOGRAPHY TECHNIQUE: 2D and 3D (tomosynthesis) digital mammographic views obtained, with additional images as needed for full coverage. Current study was also evaluated with a Computer Aided Detection (CAD) system. DENSITY Left: C. The breast is heterogeneously dense, which may obscure small masses. MAMMOGRAPHY FINDINGS Left: Upper Inner at 11:00, 6 cm from nipple, Middle depth, previously measuring (08/09/2024) 1 x 0.5 x 0.9cm: There is a biopsy marker in targeted location. IMPRESSION: Left * Biopsy marker present. OVERALL ASSESSMENT CATEGORY BI-RADS None: This exam requires no BI-RADS. ELECTRONICALLY SIGNED: Killian Damico M.D. on 09/16/2024 at 12:41:17 PM PT Interpreting Station ID: [id number]
== END ==
LOC: US 13:02
PROVIDERS: PCP Family Medicine; Referring Provider Family Medicine; Visit Provider Family Medicine
DX: R92.8 Other abnormal and inconclusive findings on diagnostic imaging of breast (principal); N60.82 Other benign mammary dysplasias of left breast; D05.02 Lobular carcinoma in situ of left breast; R92.333 Mammographic heterogeneous density, bilateral breasts; Z80.3 Family history of malignant neoplasm of breast
CPT/HCPCS: 19083; 77065

== ENCOUNTER 2024-10-04 09:07 | Day surgery (SDC) | payer MEDICARE, OTHER, SELFPAY ==
[2024-10-04 10:28] VITALS: BP 167/76; PULSE 51; RESP 16; TEMP 36.1; O2SAT 99
--- NOTE | 2024-10-04 10:42 | PM.HP.IH.1 ---
History of Present Illness History of Present Illness Date Patient Seen: 10/04/24 Chief complaint: Colonoscopy Narrative: Colorectal cancer screening. Last colonoscopy 10 years ago but with poor prep. [facility] Medical History (Updated 05/15/24 @ 19:29 by Nan Jacob) Hearing decreased Eczema (~1969) Psoriatic arthritis Osteoarthritis (~1989) Asthma (~1979) Cataracts, bilateral (~2021) Hyperlipidemia (~2022) Aortic stenosis (~2022) Skin cancer (~2019) Lumbar spinal stenosis Lumbar foraminal stenosis Low back pain Lumbar spondylosis Lumbar radiculopathy Lower extremity surgery planned GERD (gastroesophageal reflux disease) Anxiety Arthritis Surgical History (Updated 05/15/24 @ 19:29 by Nan Jacob) Anesthesia History of surgery on lower extremity History of lumbar surgery Family History (Updated 05/15/24 @ 19:31 by Nan Jacob) Mother Scoliosis Pneumonia Father Stroke Brother History of heart disease Social History alcohol intake: never Meds Home Medications and Allergies Home Medications ?Medication ?Instructions ?Recorded ?Confirmed ?Type CHOLECALCIFEROL (VITAMIN D3) 0 PO * DOSE/FREQUENCY ##0 01/10/08 01/09/23 History (Vitamin D3) Cyanocobalamin (Vitamin B-12) 100 mcg PO ##0 01/10/08 01/09/23 History [TYLENOL ARTHRITIS] ##0 01/10/08 01/09/23 History fluticasone furoate 100 1 inh inhalation DAILY 09/19/21 10/04/24 History mcg-vilanterol 25 mcg/dose inhalation powder (Breo Ellipta) cetirizine 10 mg capsule (Zyrtec) 10 mg PO DAILY PRN 01/09/23 05/06/24 History meloxicam 15 mg tablet 15 mg PO DAILY 01/09/23 05/06/24 History sulfasalazine 500 mg tablet 1,000 mg PO BID 01/09/23 10/04/24 History tizanidine 2 mg tablet 2 mg PO BEDTIME 01/09/23 10/04/24 History sertraline 25 mg tablet (Zoloft) 25 mg PO DAILY 05/06/24 10/04/24 History amlodipine 2.5 mg tablet 2.5 mg PO DAILY 07/14/24 10/04/24 History Allergies Allergy/AdvReac Type Severity Reaction Status Date / Time azithromycin Allergy Intermediate Hives Verified 10/04/24 10:25 Sulfa (Sulfonamide Allergy Intermediate Hives Verified 10/04/24 10:25 Antibiotics) Exam Vital Signs (past 8 hours): - 10/04/24 10:28 Temperature 97.0 F L Pulse Rate 51 L Respiratory Rate 16 Blood Pressure 167/76 H Pulse Oximetry 99 Oxygen Delivery Method Room Air Oxygen Delivery Method Room Air Narrative Exam Narrative: Oropharynx free of lesions Assessment & Plan Assessment & Plan narrative: History of incomplete colon cancer screening. Need for colonoscopy screening at this time. Risks, benefits, alternatives have been explained. Time-Based Coding :: [TOTAL MINUTES] spent with patient and on the chart (including review of chart, obtaining history, exam, reviewing outside data, placing orders, documenting exam and treatment plan, and counseling patient) on [DATE]. [employer] Document charge(s): No
--- NOTE | 2024-10-04 10:43 | PM.OP.COLON ---
Operative Date/Time/Diagnoses Date of procedure: 10/04/24 Time of procedure: 11:36 Pre-op diagnosis: See indication and findings Post-op diagnosis: same Procedure & Clinicians Study performed: Colonoscopy Same procedure(s) as scheduled: Yes Indications: Colonoscopy Surgeon: Capri Bautista Anesthesia Type: Other Procedure Notes Procedure in detail: After informed consent was obtained the patient was placed in left lateral decubitus position. The video colonoscope was introduced the rectum slowly advanced cecum. Preparation was good. On slow withdrawal mucosa was carefully examined. The scope was removed. The patient tolerated procedure well. Blood loss none Complications none Sedation mac Findings 1. Normal colonoscopy to cecum other than very tortuous colon This will be the patient's last colonoscopy.
--- NOTE | 2024-10-04 10:46 | EKG_ITS ---
[address] [address] Test Date: 2024-10-04 Pat Name: Sujey Rivera Department: Room: Gender: Female Home Health Care Provider: Sanchez WALTERS : 1950 Requested By: Order Number: [id number] Reading MD: Arturo Delacruz Measurements Intervals [place] Rate: 55 P: 53 NE: 158 QRS: -15 QRSD: 74 T: 9 QT: 470 QTc: 449 Interpretive Statements Sinus bradycardia with sinus arrhythmia Nonspecific T wave abnormality Electronically Signed On 10-18-2024 8:39:21 PDT by Arturo Delacruz
[2024-10-04] MEDS: LACTATED RINGERS 1,000 ML 42 ML IV (10:59)
[2024-10-04 11:38] VITALS: BP 111/58; PULSE 64; RESP 14; TEMP 36.2; O2SAT 95
[2024-10-04 11:43] VITALS: BP 107/58; PULSE 55; RESP 16; O2SAT 94
[2024-10-04 11:45] VITALS: BP 115/58; PULSE 58; RESP 16; O2SAT 94
[2024-10-04 11:50] VITALS: BP 149/68; PULSE 57; RESP 18; O2SAT 96
[2024-10-04 11:54] VITALS: BP 146/70; PULSE 57; RESP 16; TEMP 36.2; O2SAT 96
== END 2024-10-04 12:06 | disposition home or self-care (01) ==
PROVIDERS: PCP Family Medicine; Referring Provider Internal Medicine Gastroenterology; Visit Provider Internal Medicine Gastroenterology
PROC: 0DJD8ZZ Inspection of Lower Intestinal Tract, Via Natural or Artificial Opening Endoscopic (ICD-10-PCS; CPT 45378; principal; 2024-10-04 10:30)
DX: Z12.11 Encounter for screening for malignant neoplasm of colon (principal); I10 Essential (primary) hypertension; E78.5 Hyperlipidemia, unspecified; L40.50 Arthropathic psoriasis, unspecified
CPT/HCPCS: G0121; 93005; J2704